=== PATIENT | male | born 1980 | race Caucasian/White ===

== ENCOUNTER 2025-06-01 22:11 | Emergency (ER) | payer OTHER ==
[~2025-06-01] VITALS: Ht 185.4 cm; Wt 123.8 kg
[2025-06-01] MEDS ORDERED: PSEUDOEPHEDRINE HCL 30 MG TAB PO ONE (22:45)
[2025-06-01] MEDS ORDERED: TRAMADOL HCL 50 MG HOME.PACK PO ONE (22:45)
[2025-06-01] MEDS ORDERED: methylPREDNISolone 4 MG HOME.PACK PO ONE (22:45)
[2025-06-01] MEDS ORDERED: AMOXICILLIN/CLAVULANATE K 875 MG HOME.PACK PO ONE (22:45)
[2025-06-01] MEDS ORDERED: AMOX TR-K CLV1 EAC1 PO (22:47)
[2025-06-01] MEDS ORDERED: NASAL DECONGEST30 MG PO (22:47)
[2025-06-01] MEDS ORDERED: TRAMADOL HCL50 MG PO (22:47)
[2025-06-01 23:18] VITALS: BP 126/78
== END 2025-06-01 23:20 | disposition home or self-care (01) ==
LOC: ED 22:11
DX: J32.9 Chronic sinusitis, unspecified (principal)
CPT/HCPCS: 99283; A9270

== ENCOUNTER 2025-08-15 20:41 | Emergency (ER) | payer OTHER ==
[~2025-08-15] VITALS: Ht 185.4 cm; Wt 123.8 kg
[~2025-08-15 20:41] MED LIST: AMOX TR-K CLV1 EAC1 PO; NASAL DECONGEST30 MG PO; TRAMADOL HCL50 MG PO
[2025-08-15] MEDS ORDERED: HYDROmorphone HCL 1 MG/ML SYR IM ONE (21:15)
[2025-08-15] MEDS ORDERED: HYDROCODON-ACE1 EA10 PO (22:11)
[2025-08-15] MEDS ORDERED: methylPREDNISolone 4 MG HOME.PACK PO ONE (22:15)
[2025-08-15] MEDS ORDERED: HYDROCODONE BIT/ACETAMINOPHEN 5/325 MG 1 TAB HOME.PACK PO ONE (22:15)
[2025-08-15 23:09] VITALS: BP 145/94
== END 2025-08-15 23:07 | disposition home or self-care (01) ==
LOC: ED 20:41
DX: M51.369 Other intervertebral disc degeneration, lumbar region without mention of lumbar back pain or lower extremity pain (principal); E11.9 Type 2 diabetes mellitus without complications; J44.9 Chronic obstructive pulmonary disease, unspecified; Z79.899 Other long term (current) drug therapy
CPT/HCPCS: 72131; 96372; 99283-25; A9270; J1171; J2919

== ENCOUNTER 2025-10-01 10:56 | Emergency (ER) | payer OTHER ==
[~2025-10-01] VITALS: Ht 185.4 cm; Wt 118.7 kg
[~2025-10-01 10:56] MED LIST changes: +HYDROCODON-ACE1 EA10 PO
[2025-10-01] MEDS ORDERED: CYCLOBENZAPRINE10 MG PO (13:38)
[2025-10-01] MEDS ORDERED: PREDNISONE20 MG PO (13:38)
[2025-10-01] MEDS ORDERED: predniSONE 20 MG TAB PO ONE (13:45)
[2025-10-01] MEDS ORDERED: CYCLOBENZAPRINE HCL 10 MG TAB PO ONE (13:45)
[2025-10-01 13:50] VITALS: BP 146/88
== END 2025-10-01 13:55 | disposition home or self-care (01) ==
LOC: ED 10:56
DX: T22.211A Burn of second degree of right forearm, initial encounter (principal); T22.212A Burn of second degree of left forearm, initial encounter; M54.41 Lumbago with sciatica, right side; E11.9 Type 2 diabetes mellitus without complications; J44.9 Chronic obstructive pulmonary disease, unspecified; I48.91 Unspecified atrial fibrillation; X12.XXXA Contact with other hot fluids, initial encounter
CPT/HCPCS: 99283; J7512

== ENCOUNTER 2025-10-21 09:16 | Emergency (ER) | payer OTHER ==
[~2025-10-21] VITALS: Ht 185.4 cm; Wt 120.8 kg
[~2025-10-21 09:16] MED LIST changes: +CYCLOBENZAPRINE10 MG PO; +PREDNISONE20 MG PO
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
[2025-10-21] MEDS ORDERED: FLUOCINONIDE15 GM TOP (09:47)
[2025-10-21 10:03] VITALS: BP 135/92
== END 2025-10-21 10:03 | disposition home or self-care (01) ==
LOC: ED 09:16
DX: L25.9 Unspecified contact dermatitis, unspecified cause (principal); I48.91 Unspecified atrial fibrillation; J44.9 Chronic obstructive pulmonary disease, unspecified
CPT/HCPCS: 99283; J8540